=== PATIENT | female | born 1975 | race Caucasian/White ===

== ENCOUNTER 2016-07-08 22:32 | Emergency (ER) | payer OTHER ==
[~2016-07-08] VITALS: Ht 152.4 cm; Wt 94.5 kg
[~2016-07-08 22:32] MED LIST: DICL50TA2 PO; PREN1TAB49; UDROBDM PO
[2016-07-08 22:43] VITALS: Ht 152.4 cm; Wt 94.5 kg
[2016-07-09] MEDS ORDERED: morphine 4 MG/ML VIAL IV STA ×2 (01:12→04:34)
[2016-07-09] MEDS ORDERED: ONDANSETRON 4 MG INJ IV STA (01:12)
[2016-07-09] MEDS ORDERED: SOD CHLORIDE 0.9% 1,000 ML IV STA (01:12)
--- NOTE | 2016-07-09 01:24 | ERD ---
ER Documentation Chief Complaint Date/Time DATE: 07/09/16 TIME: 01:22 Chief Complaint MID EPIGASTRIC PAIN AFTER EATING X4 DAYS HPI 41-year-old female presents in emergency department for complaints of epigastric pain radiating being to the back started 4 days ago, patient described the pain as sharp pain, 6/10 scale, is accompanied with nausea, worse after eating. Patient did not take any medications to help with symptoms. Patient denies any fever or chills. Patient denies any diarrhea or constipation. Patient denies any blood in the stool or black stool. ROS All systems reviewed and are negative except as per history of present illness. Medications Home Meds Active Scripts Magaldrate/Simethicone* (Mylanta*) 355 Ml Susp, 30 ML PO QID Y for GASTROINTESTINAL UPSET, #1 BOTTLE Prov:BRANDON MONTAGUE NP 07/09/16 Omeprazole* (Omeprazole*) 20 Mg Capsule.dr, 20 MG PO DAILY, #30 Prov:BRANDON MONTAGUE NP 07/09/16 Ondansetron (Ondansetron Odt) 4 Mg Tab.rapdis, 4 MG PO Q8 Y for NAUSEA AND/OR VOMITING, #30 TAB Prov:BRANDON MONTAGUE NP 07/09/16 Hydrocodone/Acetaminophen ([place] 5-325 Tablet) 1 Each Tablet, 1 TAB PO Q6H Y for SEVERE PAIN LEVEL 7-10, #20 TAB Prov:BRANDON MONTAGUE NP 07/09/16 Guaifenesin-Dextromethorphan* (Robitussin* DM) 100MG/10MG/5ML Syrup, 5 ML PO Q6H Y for COUGH, #120 ML Prov:DHAVAL ALICIA DO 01/21/16 Diclofenac Potassium (Diclofenac Potassium) 50 Mg Tablet, 50 MG PO Q8, #20 TAB Prov:DHAVAL ALICIA DO 01/21/16 Reported Medications Vits W-Ca,Fe,Fa(<1MG) () 1 Tab Tablet 06/05/10 Allergies Allergies: Coded Allergies: No Known Drug Allergy (Verified Allergy, Mild, 07/08/16) PMhx/Soc History of Surgery: No Anesthesia Reaction: No Hx Neurological Disorder: No Hx Respiratory Disorders: No Hx Cardiac Disorders: No Hx Psychiatric Problems: No Hx Miscellaneous Medical Probl: Yes (DM II, Obesity) Hx Alcohol Use: No Hx Substance Use: No Hx Tobacco Use: No FmHx Family History: No coronary disease, No diabetes, No other Physical Exam Vitals Vital Signs Date Time Temp Pulse Resp B/P Pulse Ox O2 Delivery O2 Flow Rate FiO2 07/08/16 22:43 97.6 65 18 162/73 100 Physical Exam GENERAL: The patient is well developed and appropriate for usual state of health, in no apparent distress. CHEST: Clear to auscultation bilaterally. There are no rales, wheezes or rhonchi. HEART: Regular rate and rhythm. No murmurs, clicks, rubs or gallops. No S3 or S4. ABDOMEN: Soft, nontender and nondistended. Good bowel sounds. No rebound or guarding. No gross peritonitis. No gross organomegaly or masses. No Mai sign or McBurney point tenderness. BACK: No midline or flank tenderness. EXTREMITIES: Equal pulses bilaterally. There is no peripheral clubbing, cyanosis or edema. No focal swelling or erythema. Full range of motion. Grossly neurovascularly intact. NEURO: Alert and oriented. Cranial nerves 2-12 intact. Motor strength in all 4 extremities with 5/5 strength. Sensation grossly intact. Normal speech and gait. SKIN: There is no apparent rash or petechia. The skin is warm and dry. HEMATOLOGIC AND LYMPHATIC: There is no evidence of excessive bruising or lymphedema. No gross cervical, axillary, or inguinal lymphadenopathy. Result Diagram: 07/09/16 0145 07/09/16 014 Results 24 hrs Laboratory Tests Test 07/09/16 01:35 07/09/16 01:45 Urine Color LT. YELLOW Urine Clarity CLEAR Urine pH 6.0 Urine Specific [place] <=1.005 Urine Ketones NEGATIVE Urine Nitrite NEGATIVE Urine Bilirubin NEGATIVE Urine Urobilinogen 0.2 E.U./dL Urine Leukocyte Esterase NEGATIVE Urine Hemoglobin NEGATIVE Urine Glucose NEGATIVE% Urine Total Protein NEGATIVE White Blood Count 9.410^3/ul Red Blood Count 4.1910^6/ul Hemoglobin 12.2g/dl Hematocrit 36.1% Mean Corpuscular Volume 86.2fl Mean Corpuscular Hemoglobin 29.1pg Mean Corpuscular Hemoglobin Concent 33.8g/dl Red Cell Distribution Width 12.7% Platelet Count 71276^3/UL Mean Platelet Volume 10.6fl Neutrophils % 52.7% Lymphocytes % 39.2% Monocytes % 4.7% Eosinophils % 2.7% Basophils % 0.4% Nucleated Red Blood Cells % 0.0/100WBC Neutrophils # 5.010^3/ul Lymphocytes # 3.710^3/ul Monocytes # 0.410^3/ul Eosinophils # 0.310^3/ul Basophils # 0.010^3/ul Nucleated Red Blood Cells # 0.010^3/ul Sodium Level 141mmol/L Potassium Level 4.0mmol/L Chloride Level 101mmol/L Carbon Dioxide Level 26mmol/L Anion Gap 18 Blood Urea Nitrogen 17mg/dl Creatinine 0.54mg/dl Glucose Level 256mg/dl Calcium Level 9.5mg/dl Total Bilirubin mg/dl Direct Bilirubin mg/dl Indirect Bilirubin mg/dl Aspartate Amino Transf (AST/SGOT) 32IU/L Alanine Aminotransferase (ALT/SGPT) 51IU/L Alkaline Phosphatase 102IU/L Total Protein 7.2g/dl Albumin 4.0g/dl Globulin 3.20g/dl Albumin/Globulin Ratio 1.25 Lipase 155U/L Current Medications Medications (Trade) Dose Ordered Sig/Jana Route PRN Reason Start Time Stop Time Status Last Admin Dose Admin Sodium Chloride (NS) 1,000 ml @ 1,000 mls/hr Q1H STAT IV 07/09/16 01:12 07/09/16 02:11 DC 07/09/16 01:37 Morphine Sulfate (morphine) 4 mg ONCE STAT IV 07/09/16 01:12 07/09/16 01:13 DC 07/09/16 01:34 Ondansetron HCl 4 mg 4 mg ONCE STAT IV 07/09/16 01:12 07/09/16 01:13 DC 07/09/16 01:33 Sodium Chloride (NS) 100 ml @ ud STK-MED ONCE .ROUTE 07/09/16 04:25 07/09/16 04:26 DC 07/09/16 04:25 Iohexol (Omnipaque 300mg/ ml) 150 ml STK-MED ONCE .ROUTE 07/09/16 04:25 07/09/16 04:26 DC 07/09/16 04:25 Morphine Sulfate (morphine) 4 mg ONCE STAT IV 07/09/16 04:34 07/09/16 04:35 DC 07/09/16 04:40 Patient was given medication for pain here in emergency department, after treatment, patient verbalized feeling much better. Patient's pain is improved.Patient was given Zofran here in the emergency department. After treatment, patient was able to tolerate po fluids here in the emergency department without any vomiting. There is no signs and symptoms of dehydration. Normal saline IV bolus was given here in emergency department for rehydration, patient tolerated IV fluids. PROCEDURE: US Abdomen (right upper quadrant). CLINICAL INDICATION: Right upper quadrant pain TECHNIQUE: Multiple real-time longitudinal and transverse images of the right upper quadrant of the abdomen were acquired utilizing a curved array transducer. Images were reviewed on a high-resolution PACS workstation. COMPARISON: 06/28/2007 FINDINGS: The liver is enlarged at 24 cm and diffusely echogenic without focal mass. The gallbladder is normal. There is no pericholecystic fluid or gallbladder wall thickening or gallstones. No intra or extrahepatic biliary dilatation is seen. The common bile duct measures 3.7 mm in maximal dimension. The visualized portions of the pancreas are unremarkable with obscuration of the tail of the pancreas. No free fluid is identified. Visualized abdominal aorta and IVC are unremarkable. The right kidney measures 12.4 cm in length. There is normal echogenicity within the right kidney. There is no perinephric fluid collection. No hydronephrosis, mass, or calculus is seen. IMPRESSION: 1. Mildly enlarged fatty liver. 2. No evidence for cholelithiasis. 3. No evidence for cholecystitis. 4. No evidence for biliary obstruction. RPTAT: HMVK .Corey Kirkland MD, MD Date Time Electronically viewed and signed by .Corey Kirkland MD, MD on 07/09/2016 02:28 .K/ CC: BRANDON MONTAGUE NP PROCEDURE: CT Abdomen and pelvis with contrast. CLINICAL INDICATION: Abdominal pain. TECHNIQUE: CT scan of the abdomen and pelvis with contrast was performed on a multi-detector high-resolution CT scanner. The patient was scanned following the uncomplicated intravenous administration of 100 cc of Omnipaque 300. Coronal and sagittal reformatted images were obtained from the axial source images. Images were reviewed on a high-resolution PACS workstation. One or more of the following dose reduction techniques were used: - Automated exposure control. - Adjustment of the mA and/or kV according to patient size. - Use of iterative reconstruction technique. Exam CTD/vol = 22.50 mGy. Total exam DLP = 1389.46 mGy-cm. COMPARISON: None. FINDINGS: Evaluation of the lung bases demonstrates mild bibasilar atelectasis. There is a calcified granuloma within the right middle lobe. Abdomen: The liver is increased in size and diffusely low in attenuation consistent with fatty infiltration. There is no focal mass or dilatation of the biliary tree. The gallbladder is not distended. The spleen, pancreas and bilateral adrenal glands are within normal limits. Bilateral kidneys are normal in size with symmetric enhancement. There is a tiny cyst within the upper pole of the right kidney. There is no hydronephrosis or hydroureter. There is no retroperitoneal adenopathy. The abdominal aorta is of normal caliber. There is no abnormal bowel wall thickening or distension. There is no bowel obstruction or free air. A normal appendix is identified. There is no diverticulosis or diverticulitis. There is no ascites. Pelvis: The bladder is unremarkable. The uterus and adnexa are within normal limits. There is no significant pelvic adenopathy or free fluid. Evaluation of the osseous structures demonstrates no suspicious lytic or blastic lesion. IMPRESSION: Mildly enlarged liver with fatty infiltration. Mild bibasilar atelectasis. Otherwise no acute abnormality identified within the abdomen and pelvis. .Grabiel Perez MD, MD Date Time Electronically viewed and signed by .Grabiel Perez MD, MD on 07/09/2016 05:52 .T/ CC: BRANDON MONTAGUE SENIOR [employer]CHIT[employer] Procedures/MDM Medical Decision Making: Patient's abdominal pain nonspecific at this time, possible consistent with gastritis. Liver function tests are normal, no choledocholithiasis, cholecystitis, no symptoms of pancreatitis, lipase is normal. There is low suspicion for abdominal emergencies at this time. Patients abdominal exam is normal at this time. Patients radiology exam does not show any abdominal emergencies at this time. There is low suspicion for appendicitis , cholecystitis, abdominal aortic aneurysms or peritonitis at this time. There is low suspicion for sepsis. Patient appears well and is hemodynamically stable. Disposition: Home. Condition: Stable Prescription Hyannis for severe pain, Zofran, omeprazole, Mylanta Instructions: Patient is advised to take medications as prescribed. Patient is advised to rest, increase fluid intake and do brat diet for next 1-2 days and progress as tolerated, avoid spicy food. Patient is advised that if symptoms are worse, severe abdominal pain, uncontrolled vomiting, high fever, severe flank pain, worst signs and symptoms, to return to the emergency department immediately. Otherwise, patient can follow up with primary care doctor in 5-7 days. Departure Diagnosis: Primary Impression: Abdominal pain Abdominal location: epigastric Qualified Code: R10.13 - Epigastric pain Condition: Stable Patient Instructions: Abdominal Pain Additional Instructions: Patient is advised to take medications as prescribed. Patient is advised to rest , increase fluid intake and do brat diet for next 1-2 days and progress as tolerated, avoid spicy food. Patient is advised that if symptoms are worse, severe abdominal pain, uncontrolled vomiting, high fever, severe flank pain, worst signs and symptoms, to return to the emergency department immediately. Otherwise, patient can follow up with primary care doctor in 5-7 days. BRANDON MONTAGUE NP Jul 09, 2016 01:24
[2016-07-09 02:01] LABS: ADD SCAN DIFF NO
[2016-07-09 02:04] LABS: ADD UMIC NO; URINE BILIRUBIN (Dip) NEGATIVE (NEGATIVE); URINE BLOOD (Dip) NEGATIVE (NEGATIVE); URINE COLOR LT. YELLOW (YELLOW); URINE GLUCOSE (Dip) NEGATIVE (NEGATIVE); URINE KETONES (Dip) NEGATIVE (NEGATIVE); URINE LEUKOCYTE ESTERASE (Dip) NEGATIVE (NEGATIVE); URINE NITRITE (Dip) NEGATIVE (NEGATIVE); URINE TOTAL PROTEIN (Dip) NEGATIVE (NEGATIVE); URINE UROBILINOGEN (Dip) 0.2 E.U./dL (0.1-1.0)
[2016-07-09 02:04] LABS: BASOPHILS % 0.4 % (0.0-2.0); EOSINOPHILS # 0.3 10^3/ul (0.0-0.5); EOSINOPHILS % 2.7 % (0.0-7.0); HEMATOCRIT 36.1 % (37.0-47.0); HEMOGLOBIN 12.2 g/dl (12.0-16.0); LYMPHOCYTES # 3.7 10^3/ul (0.8-2.9); LYMPHOCYTES % 39.2 % (15.0-51.0); MEAN CORPUSCULAR HEMOGLOBIN 29.1 pg (29.0-33.0); MEAN CORPUSCULAR HGB CONC 33.8 g/dl (32.0-37.0); MEAN CORPUSCULAR VOLUME 86.2 fl (82.0-101.0); MEAN PLATELET VOLUME 10.6 fl (7.4-10.4); MONOCYTE # 0.4 10^3/ul (0.3-0.9); MONOCYTES % 4.7 % (0.0-11.0); NEUTROPHILS % 52.7 % (39.0-77.0); PLATELET COUNT 329 10^3/UL (140-415); RED BLOOD COUNT 4.19 10^6/ul (4.20-5.40); RED CELL DISTRIBUTION WIDTH 12.7 % (11.5-14.5); WHITE BLOOD COUNT 9.4 10^3/ul (4.8-10.8)
[2016-07-09 02:15] LABS: CREATININE 0.54 mg/dl (0.44-1.00)
[2016-07-09 02:16] LABS: ALBUMIN/GLOBULIN RATIO 1.25; CALCIUM 9.5 mg/dl (8.4-10.2); TOTAL PROTEIN 7.2 g/dl (6.1-8.1)
--- NOTE | 2016-07-09 02:28 | RADRPT ---
PROCEDURE: US Abdomen (right upper quadrant). CLINICAL INDICATION: Right upper quadrant pain TECHNIQUE: Multiple real-time longitudinal and transverse images of the right upper quadrant of th e abdomen were acquired utilizing a curved array transducer. Images were reviewed on a high-resoluti on PACS workstation. COMPARISON: 06/28/2007 FINDINGS: The liver is enlarged at 24 cm and diffusely echogenic without focal mass. The gallbladder is jeremías l. There is no pericholecystic fluid or gallbladder wall thickening or gallstones. No intra or ext rahepatic biliary dilatation is seen. The common bile duct measures 3.7 mm in maximal dimension. T he visualized portions of the pancreas are unremarkable with obscuration of the tail of the pancreas . No free fluid is identified. Visualized abdominal aorta and IVC are unremarkable. The right kidney measures 12.4 cm in length. There is normal echogenicity within the right kidney. There is no perinephric fluid collection. No hydronephrosis, mass, or calculus is seen. IMPRESSION: 1. Mildly enlarged fatty liver. 2. No evidence for cholelithiasis. 3. No evidence for cholecystitis. 4. No evidence for biliary obstruction. RPTAT: HMVK .Corey Kirkland MD, Date Time Electronically viewed and signed by .Corey Kirkland MD, on 07/09/2016 02:28 .K/
[2016-07-09] MEDS ORDERED: IOHEXOL 300MG/ML 150 ML BTL ONE (04:25)
[2016-07-09] MEDS ORDERED: SOD CHLORIDE 0.9% 100 ML ONE (04:25)
[2016-07-09] MEDS ORDERED: OMEP20CA16 PO (05:46)
[2016-07-09] MEDS ORDERED: ONDA4TAB14 PO (05:46)
[2016-07-09] MEDS ORDERED: HYDR-906 PO (05:46)
[2016-07-09] MEDS ORDERED: MAG-19 PO (05:46)
--- NOTE | 2016-07-09 05:52 | RADRPT ---
PROCEDURE: CT Abdomen and pelvis with contrast. CLINICAL INDICATION: Abdominal pain. TECHNIQUE: CT scan of the abdomen and pelvis with contrast was performed on a multi-detector high -resolution CT scanner. The patient was scanned following the uncomplicated intravenous administrat ion of 100 cc of Omnipaque 300. Coronal and sagittal reformatted images were obtained from the axia l source images. Images were reviewed on a high-resolution PACS workstation. One or more of the following dose reduction techniques were used: - Automated exposure control. - Adjustment of the mA and/or kV according to patient size. - Use of iterative reconstruction technique. Exam CTD/vol = 22.50 mGy. Total exam DLP = 1389.46 mGy-cm. COMPARISON: None. FINDINGS: Evaluation of the lung bases demonstrates mild bibasilar atelectasis. There is a calcified granulom a within the right middle lobe. Abdomen: The liver is increased in size and diffusely low in attenuation consistent with fatty infi ltration. There is no focal mass or dilatation of the biliary tree. The gallbladder is not distend ed. The spleen, pancreas and bilateral adrenal glands are within normal limits. Bilateral kidneys are normal in size with symmetric enhancement. There is a tiny cyst within the upper pole of the ri ght kidney. There is no hydronephrosis or hydroureter. There is no retroperitoneal adenopathy. Th e abdominal aorta is of normal caliber. There is no abnormal bowel wall thickening or distension. There is no bowel obstruction or free air . A normal appendix is identified. There is no diverticulosis or diverticulitis. There is no asci anshu. Pelvis: The bladder is unremarkable. The uterus and adnexa are within normal limits. There is no significant pelvic adenopathy or free fluid. Evaluation of the osseous structures demonstrates no suspicious lytic or blastic lesion. IMPRESSION: Mildly enlarged liver with fatty infiltration. Mild bibasilar atelectasis. Otherwise no acute abnormality identified within the abdomen and pelvis. .Grabiel Perez MD, MD Date Time Electronically viewed and signed by .Grabiel Perez MD, MD on 07/09/2016 05:52 .T/
[2016-07-09 06:04] VITALS: BP 170/70; PULSE 65; RESP 16; TEMP 98.9
== END 2016-07-09 06:04 | disposition home or self-care (01) ==
LOC: FTE 22:32
DX: R10.13 Epigastric pain (principal); R11.0 Nausea; E11.9 Type 2 diabetes mellitus without complications; E66.9 Obesity, unspecified; Z68.41 Body mass index [BMI] 40.0-44.9, adult
CPT/HCPCS: 36415; 74177; 76705; 80053; 81003; 83690; 85025; 96374; 96375; 96376; J2270; J2405; J7030; Q9967; Z7502; Z7610

== ENCOUNTER 2016-09-10 08:35 | Emergency (ER) | payer OTHER ==
[~2016-09-10] VITALS: Ht 152.4 cm; Wt 89.0 kg
[~2016-09-10 08:35] MED LIST changes: +HYDR-906 PO; +MAG-19 PO; +OMEP20CA16 PO; +ONDA4TAB14 PO
[2016-09-10 08:37] VITALS: Ht 152.4 cm; Wt 89.0 kg
[2016-09-10] MEDS ORDERED: KETOROLAC 30 MG INJ IM STA (08:55)
--- NOTE | 2016-09-10 09:29 | ERD ---
ER Documentation Chief Complaint Date/Time DATE: 09/10/16 TIME: 09:27 Chief Complaint PELVIC PAIN X 2 MOS HPI This is a 41-year-old female with history of diabetes type 2 and gastritis presenting to the emergency department complaining of pelvic pain that radiates to her flank for the past 2 months. Patient states the pain currently is 4 out of 10 and is constant. Patient admits to having associated nausea, urinary symptoms. She denies any vaginal bleeding or discharge. States her last menstrual period was a few years ago. Patient denies any vomiting, diarrhea, constipation. Patient states that she has been evaluated by another physician however the abdomen ultrasound did not tell her any information. Her abdominal surgeries include in the past ROS All systems reviewed and are negative except as per history of present illness. Medications Home Meds Active Scripts Acetaminophen* (Tylenol*) 325 Mg Tablet, 2 TAB PO Q6 Y for PAIN AND OR ELEVATED TEMP, #20 TAB Prov:DALE ARROYO PA-C 09/10/16 Magaldrate/Simethicone* (Mylanta*) 355 Ml Susp, 30 ML PO QID Y for GASTROINTESTINAL UPSET, #1 BOTTLE Prov:BRANDON MONTAGUE NP 07/09/16 Omeprazole* (Omeprazole*) 20 Mg Capsule.dr, 20 MG PO DAILY, #30 Prov:BRANDON MONTAGUE NP 07/09/16 Ondansetron (Ondansetron Odt) 4 Mg Tab.rapdis, 4 MG PO Q8 Y for NAUSEA AND/OR VOMITING, #30 TAB Prov:BRANDON MONTAGUE NP 07/09/16 Hydrocodone/Acetaminophen ([place] 5-325 Tablet) 1 Each Tablet, 1 TAB PO Q6H Y for SEVERE PAIN LEVEL 7-10, #20 TAB Prov:BRANDON MONTAGUE NP 07/09/16 Guaifenesin-Dextromethorphan* (Robitussin* DM) 100MG/10MG/5ML Syrup, 5 ML PO Q6H Y for COUGH, #120 ML Prov:DHAVAL ALICIA DO 01/21/16 Diclofenac Potassium (Diclofenac Potassium) 50 Mg Tablet, 50 MG PO Q8, #20 TAB Prov:DHAVAL ALICIA DO 01/21/16 Reported Medications Vits W-Ca,Fe,Fa(<1MG) () 1 Tab Tablet 06/05/10 Allergies Allergies: Coded Allergies: No Known Drug Allergy (Verified Allergy, Mild, 07/08/16) PMhx/Soc History of Surgery: Yes () Anesthesia Reaction: No Hx Neurological Disorder: No Hx Respiratory Disorders: No Hx Cardiac Disorders: No Hx Psychiatric Problems: No Hx Miscellaneous Medical Probl: Yes (DM TYPE 2) Hx Alcohol Use: No Hx Substance Use: No Hx Tobacco Use: No Smoking Status: Never smoker Physical Exam Vitals Vital Signs Date Time Temp Pulse Resp B/P Pulse Ox O2 Delivery O2 Flow Rate FiO2 09/10/16 08:37 98.1 83 18 140/75 99 Physical Exam GENERAL: well-developed/well-nourished, in no apparent distress, non-toxic appearing. Obese HENT: NC/AT, moist mucous membranes EYES: Conjunctiva normal NECK: Supple, no lymphadenopathy PULM: CTA bilaterally, no rales, rhonchi, or wheezing heard CV: Normal S1S2, RRR, good capillary refill GI: Truncal obesity soft, non-distended, tender to palpation pelvic region bilaterally Normal bowel sounds, no masses or organomegaly felt on exam No gross peritonitis, no bruits Negative Rovsing, negative Mai, negative McBurney's point, Negative CVAT BACK: No masses EXT: No clubbing, cyanosis, or edema NEURO: Alert and Orientated SKIN: Intact, normal turgor PSYCH: Normal mood and mentation Results 24 hrs Laboratory Tests Test 09/10/16 09:17 Urine Color LT. YELLOW Urine Clarity CLEAR Urine pH 6.0 Urine Specific [place] <=1.005 Urine Ketones NEGATIVE Urine Nitrite NEGATIVE Urine Bilirubin NEGATIVE Urine Urobilinogen 0.2 E.U./dL Urine Leukocyte Esterase NEGATIVE Urine Hemoglobin NEGATIVE Urine Glucose NEGATIVE% Urine Total Protein NEGATIVE Current Medications Medications (Trade) Dose Ordered Sig/Jana Route PRN Reason Start Time Stop Time Status Last Admin Dose Admin Ketorolac Tromethamine (Toradol) 30 mg ONCE STAT IM 09/10/16 08:55 09/10/16 08:57 DC 09/10/16 09:17 Procedures/MDM This is a 41-year-old female presenting to the emergency room complaining of pelvic pain for the past 2 months. Patient has been evaluated by different hospitals in the past. Patient has stable vital signs, she appears well and stable for discharge to follow-up with an [employer] outpatient. In the ED, a urinalysis was done did not show any evidence of a urinary tract infection however I have sent out the urine for culture. A pelvic ultrasound was done and it did show a 2 cm benign left ovarian cyst. There was no evidence of ovarian torsion, ruptured ovarian cyst, pyonephritis. Prescription for Tylenol was provided. Discussed return to the ER for any worsening symptoms. Patient understands and agrees with this plan. Pelvic US: 1. The uterus is retroflexed. 2. There is a 2.3 x 1.4 benign left ovarian cyst. 3. Otherwise, unremarkable pelvic not of the sonogram. Renal US: 1. Suggested mild right hydronephrosis. Recommend follow-up as clinically indicated. If the patient is right-sided flank pain or tenderness, consider CT abdomen and pelvis. 2. Otherwise unremarkable retroperitoneal ultrasound. Departure Diagnosis: Primary Impression: Ovarian cyst Laterality: left Qualified Code: N83.202 - Cyst of left ovary Additional Impression: Pelvic pain Condition: Stable DALE ARROYO PA-C Sep 10, 2016 09:29
--- NOTE | 2016-09-10 09:55 | RADRPT ---
PROCEDURE: Renal Ultrasound CLINICAL INDICATION: Flank pain TECHNIQUE: Evaluation of the kidneys and bladder was performed as well with up scale and color and Doppler evaluation using a curved array transducer. The images were reviewed on a high-resoluti on PACS workstation. COMPARISON: CT abdomen pelvis 07/09/2016 FINDINGS: The kidneys are well visualized. No renal masses or calcifications are seen. There is suggestion of mild right hydronephrosis. There is no evidence of left hydronephrosis. The right kidney measure s 10.5 cm in length. The left kidney measures 12.4 cm in length. No perinephric fluid collection is seen. The bladder is within normal limits. IMPRESSION: 1. Suggested mild right hydronephrosis. Recommend follow-up as clinically indicated. If the patien t is right-sided flank pain or tenderness, consider CT abdomen and pelvis. 2. Otherwise unremarkable retroperitoneal ultrasound. RPTAT: KK .Michael Tobias MD, MD Date Time Electronically viewed and signed by .Michael Tobias MD, MD on 09/10/2016 09:54 .B/
[2016-09-10 09:58] LABS: ADD UMIC NO; URINE BILIRUBIN (Dip) NEGATIVE (NEGATIVE); URINE BLOOD (Dip) NEGATIVE (NEGATIVE); URINE COLOR LT. YELLOW (YELLOW); URINE GLUCOSE (Dip) NEGATIVE (NEGATIVE); URINE KETONES (Dip) NEGATIVE (NEGATIVE); URINE LEUKOCYTE ESTERASE (Dip) NEGATIVE (NEGATIVE); URINE NITRITE (Dip) NEGATIVE (NEGATIVE); URINE TOTAL PROTEIN (Dip) NEGATIVE (NEGATIVE); URINE UROBILINOGEN (Dip) 0.2 E.U./dL (0.1-1.0)
--- NOTE | 2016-09-10 10:01 | RADRPT ---
PROCEDURE: US Pelvis. CLINICAL INDICATION: 41-year-old female with pelvic pain. TECHNIQUE: Multiple sonographic images of the pelvis were obtained utilizing a transabdominal and endovaginal technique. The images were reviewed on a PACS workstation. COMPARISON: None. FINDINGS: The uterus is visualized and measures 10.9 cm sagittal by 4.38 cm AP by 5.4 cm transverse. The uter us is retroflexed.. The endometrial echo complex is normal and measures 0.93 cm. There is no evidenc e for free fluid. The right ovary has a normal echotexture and measures 2.7 x 2 x 2.3 cm . The left ovary has a normal echotexture and measures 4.2 x 2.2 x 3.4 cm. There is a benign left ovarian cys t measuring 2.3 x 1.4 cm. No free fluid is noted. No adnexal masses are noted. There is normal blo od flow to the ovaries on Doppler imaging. IMPRESSION: 1. The uterus is retroflexed. 2. There is a 2.3 x 1.4 benign left ovarian cyst. 3. Otherwise, unremarkable pelvic not of the sonogram. Physician Boby Date Time Electronically viewed and signed by Physician Boby on 09/10/2016 10:01 SAV/
[2016-09-10] MEDS ORDERED: ACET325T33 PO (10:34)
== END 2016-09-10 11:36 | disposition home or self-care (01) ==
LOC: FTE 08:35
DX: N83.202 Unspecified ovarian cyst, left side (principal); E11.9 Type 2 diabetes mellitus without complications
CPT/HCPCS: 76775; 76856; 81003; 87086; 87591; 96372; J1885; Z7502